=== PATIENT | male | born 2000 | race African-American/Black ===

== ENCOUNTER 2024-07-15 13:37 | Emergency (ER) | payer SELFPAY ==
[~2024-07-15] VITALS: Ht 177.8 cm; Wt 99.8 kg
[2024-07-15] MEDS ORDERED: POLYTRIM 1000010 ML OPH (14:11)
[2024-07-15] MEDS ORDERED: Polymyxin B Sulfate/Trimetho 10 ML BOT OPH ONE (14:15)
== END 2024-07-15 14:16 | disposition home or self-care (01) ==
LOC: ED 13:37
DX: H10.9 Unspecified conjunctivitis (principal)